=== PATIENT | male | born 1975 | race Caucasian/White ===

== ENCOUNTER 2016-08-17 13:18 | Emergency (ER) | payer SELFPAY ==
--- NOTE | 2016-08-17 14:55 | ERRECORD ---
[facility] EMERGENCY RECORD PAST MEDICAL HISTORY (13:52 BELE) MEDICAL HISTORY: Past medical history is not significant, Notes: HAS HAD DENTAL PROBLEMS BEFORE. NOW, RECURRENT LEFT SIDED DENTAL PAIN. REPORTS CANNOT AFFORD DENTIST AT THIS TIME BUT WANTS ANTIBIOTICS TO AVOID ABCESS. KNOWN ALLERGIES NO KNOWN DRUG ALLERGY CURRENT MEDICATIONS (13:51 BELE) None VITAL SIGNS (13:46 BELE) VITAL SIGNS: BP: 124/74 (Sitting), Pulse: 78 (Regular), Resp: 20 (Non-Labored), Temp: 98.9 (Oral), Pain: 5 (Intermittent), O2 sat: 99 on Room Air, Time: 08/17/2016 13:46. DOCTOR NOTES (18:30 MPUR) TEXT: LWBS. PROBLEM LIST No recorded problems DIAGNOSIS (14:41 JPAR) FINAL: PRIMARY: Dental Pain. PRESCRIPTION No recorded prescriptions DISPOSITION (14:41 JPAR) PATIENT: Disposition Type: Eloped, Disposition: Against Medical Advice, Patient left the department. Mota: GARY=TERRA Wilson, Milly DORANTES=TERRA Yousif, Pollo MPUR=MD Mario, Theron &a-1R&a+25V*p+0X*[id number]*c202B*c15G*c2P*p-0X&a-25V&a+1R Name: Billy Lindsey Jen : 1975 M41 MedRec: [id number] AcctNum: [id number] Prepared: Adi Aug 17, 2016 18:33 by Interface Page 1 of 1 pMD MTDD
--- NOTE | 2016-08-17 15:02 | PICIS ---
[facility] EMERGENCY RECORD TRIAGE (TueAug 17, 2016 13:51 BELE) PATIENT: NAME: Billy Lindsey, AGE: 41, GENDER: male, : Tue1975, TIME OF GREET: TueAug 17, 2016 13:18, PREFERRED LANGUAGE: Polish, ETHNICITY: Not or , ECODE BILLING MAP: [facility], SSN: [id number], Zip Code: [address], HEIGHT/LENGTH: 193.04cm, BMI: 24.95, PHONE: , , , PERSON ID: [id number], PCP: NONE. (TueAug 17, 2016 13:51 BELE) KG WEIGHT: 93 (est.). (14:37 JPAR) COMPLAINT: DENTAL PAIN. (TueAug 17, 2016 13:51 BELE) ADMISSION: URGENCY: 4 Non Urgent, ADMISSION SOURCE: Home, TRANSPORT: CAR, BED: TRIAGE. (TueAug 17, 2016 13:51 BELE) ASSESSMENT: Assessment: ALERT, ORIENTED MALE REPORTS LEFT SIDE DENTAL PAIN SINCE YESTERDAY., Symptoms began 08/16/2016 14:05. (14:08 BELE) PAIN: Patient complains of pain described as, throbbing, on a scale 0-10 patient rates pain as 5, Location LEFT JAW RADIATES TO LEFT SIDE OF NECK, Pain is intermittent, Notes: REPORTS HAS HAD ABCESS BEFORE AND DOES NOT WANT THIS TO PROGRESS TO THAT. STATES HAS PROGRESSIVELY WORSENED. (14:08 BELE) IMMUNIZATIONS: Flu vaccine not up to date, Tetanus immunization up to date, Pneumococcal vaccine not up to date. (14:08 BELE) SIRS SCORING: Heart Rate 55-109 (0), Temp range 96.8-101.1 (0), respiratory rate 12-24 (0), Latest WBC 3-14.9 (0), Mental Status altered: no (0), Total SIRS Score 0, Infection or Suspected Infection: No. (14:08 BELE) TREATMENTS IN PROGRESS: Treatments given Prehospital: MOTRIN 600 MG AT 1100 A.M. (14:08 BELE) PROVIDERS: TRIAGE NURSE: Milly Wilson RN. (TueAug 17, 2016 13:51 BELE) VITAL SIGNS: BP 124/74, (Sitting), Pulse 78, (Regular), Resp 20, (Non-Labored), Temp 98.9, (Oral), Pain 5, (Intermittent), O2 Sat 99, on Room Air, Time 08/17/2016 13:46. (13:46 BELE) KNOWN ALLERGIES NO KNOWN DRUG ALLERGY CURRENT MEDICATIONS (13:51 BELE) None VITAL SIGNS (13:46 BELE) VITAL SIGNS: BP: 124/74 (Sitting), Pulse: 78 (Regular), Resp: 20 (Non-Labored), Temp: 98.9 (Oral), Pain: 5 (Intermittent), O2 sat: 99 on Room Air, Time: 08/17/2016 13:46. NURSING PROCEDURE: NURSE NOTES (14:20 BEL) NURSES NOTES: Notes: PATIENT STATED HE DID NOT WANT TO WAIT TO BE SEEN - WANTED TO LEAVE. I EXPLAINED WE HAD A FULL ER AND THAT &a-1R&a+25V*p+0X*r2664L*c202B*c15G*c2P*p-0X&a-25V&a+1R Name: Billy Lindsey : 1975 M41 MedRec: [id number] AcctNum: [id number] Prepared: TueAug 17, 2016 18:39 by Interface Page 1 of 2 pMD [facility] EMERGENCY RECORD THE PHYSICIAN AND NURSES HAD TO PROVIDE CARE TO MOST URGENT FIRST. EXPLAINED HE WOULD BE SEEN BY PHYSICIAN SOON HE COULD, THAT HE WAS DEALING WITH URGENT MATTER CURRENTLY. I INFORMED DR. MARTIN OF PATIENT'S WISH TO LEAVE . HE WAS NOT FREE TO ATTEND PATIENT IMMEDIATELY AND INDICATED IF THE PATIENT WANTED TO LEAVE AMA HE WOULD NEED TO SIGN OUT. I PROVIDED AMA FORM AND EXPLAINED THAT IT INDICATED HE WAS LEAVING OF HIS OWN VOLITION, AND NOT WITH THE ADVICE OF THE PHYSICIAN. HE SIGNED AND LEFT PER AMBULATORY IN STABLE CONDITION. PAST MEDICAL HISTORY (13:52 BELE) MEDICAL HISTORY: Past medical history is not significant, Notes: HAS HAD DENTAL PROBLEMS BEFORE. NOW, RECURRENT LEFT SIDED DENTAL PAIN. REPORTS CANNOT AFFORD DENTIST AT THIS TIME BUT WANTS ANTIBIOTICS TO AVOID ABCESS. EVENTS TRANSFER: Triage to Emergency Triage. (TueAug 17, 2016 13:51 BELE) Removed from Emergency Triage. (14:41 JPAR) DOCTOR NOTES (18:30 MPUR) TEXT: LWBS. PROBLEM LIST No recorded problems DIAGNOSIS (14:41 JPAR) FINAL: PRIMARY: Dental Pain. DISPOSITION (14:41 JPAR) PATIENT: Disposition Type: Eloped, Disposition: Against Medical Advice, Patient left the department. PRESCRIPTION No recorded prescriptions IMAGING (18:00 JPAR) *SUPPLY CHARGE SHEET: Image captured from scanner. AMA/LWBS: Image captured from scanner. ADMIN (18:30 MPUR) DIGITAL SIGNATURE: MD Martin Marcus. Mota: GARY=TERRA Wilson, Milly DORANTES=TERRA Yousif, Pollo MPUR=MD Mario, Theron &a-1R&a+25V*p+0X*n2646O*c202B*c15G*c2P*p-0X&a-25V&a+1R Name: Billy Lindsey : 1975 M41 MedRec: [id number] AcctNum: [id number] Prepared: Adi Aug 17, 2016 18:39 by Interface Page 2 of 2 pMD MTDD
== END 2016-08-17 14:20 | disposition left against medical advice (07) ==
LOC: NAV ERS 13:18
DX: Z53.21 Procedure and treatment not carried out due to patient leaving prior to being seen by health care provider (principal)

== ENCOUNTER 2016-08-17 16:44 | Emergency (ER) | payer SELFPAY ==
--- NOTE | 2016-08-17 17:58 | ERRECORD ---
[facility] EMERGENCY RECORD HPI TOOTHACHE (17:45 MPUR) CHIEF COMPLAINT: Patient presents for evaluation of toothache. HISTORIAN: History provided by patient. LOCATION: Symptoms are localized, most severe to left lower second molar. QUALITY: Described as similar to previous episodes. SEVERITY: Maximum severity of symptoms moderate, Currently symptoms are moderate. TIME COURSE: Gradual onset of symptoms, There has been no change in the patient's symptoms over time. ASSOCIATED WITH: No associated symptoms. EXACERBATED BY: Patient's condition exacerbated by chewing, Patient's condition exacerbated by cold fluids, Patient's condition exacerbated by hot fluids. RELIEVED BY: Patient's condition relieved by nothing. ROS (17:47 MPUR) CONSTITUTIONAL: Historian denies fever. EYES: Historian denies eye pain. ENT: Historian denies rhinorrhea. See also HPI. CARDIOVASCULAR: Historian denies chest pain. RESPIRATORY: Historian denies cough. GI: Historian denies diarrhea, Historian denies vomiting. GENITOURINARY MALE: Historian denies dysuria. MUSCULOSKELETAL: Historian denies arthralgias. SKIN: Historian denies rash. NEUROLOGIC: Historian denies seizures. ENDOCRINE: Historian denies skin changes. HEMO/LYMPHATIC: Historian denies easy bruising. PAST MEDICAL HISTORY (16:55 EPIE) MEDICAL HISTORY: Past medical history is not significant, Notes: HAS HAD DENTAL PROBLEMS BEFORE. NOW, RECURRENT LEFT SIDED DENTAL PAIN. REPORTS CANNOT AFFORD DENTIST AT THIS TIME BUT WANTS ANTIBIOTICS TO AVOID ABCESS. MALE SURGICAL HISTORY: hydrocele. PSYCHIATRIC HISTORY: No previous psychiatric history. SOCIAL HISTORY: Patient denies alcohol use, Patient denies drug use, Patient currently uses tobacco, smokes cigarettes, Patient smokes 1 pack per day. KNOWN ALLERGIES NO KNOWN DRUG ALLERGY CURRENT MEDICATIONS (16:54 EPIE) None VITAL SIGNS (16:53 EPIE) VITAL SIGNS: BP: 126/60, Pulse: 87, Resp: 18 (Non-Labored), Temp: &a-1R&a+25V*p+0X*e9791F*c202B*c15G*c2P*p-0X&a-25V&a+1R Name: Billy Lindsey : 1975 M41 MedRec: [id number] AcctNum: [id number] Prepared: Tue Aug 17, 2016 18:40 by Interface Page 1 of 3 pMD [facility] EMERGENCY RECORD 98.9 (Oral), O2 sat: 95 on Room Air, Time: 08/17/2016 16:53. PHYSICAL EXAM (17:47 MPUR) CONSTITUTIONAL: Vital signs reviewed, Patient appears non toxic. HEAD: Head exam included findings of head atraumatic, normocephalic. EYES: Eye exam included findings of eyelids normal to inspection, Conjunctiva normal, Sclera normal. ENT: Nose exam normal, no nasal deformity, mucous membranes moist. Almost every molar still present has 50 to 75% erosion of the tooth, leaving the roots. The tooth in question has a deep pocket into the roots probably exposing the nerve. Gums surrounding are swollen. NECK: Neck exam included findings of normal range of motion, no ecchymosis. RESPIRATORY CHEST: Respiratory exam included findings of no respiratory distress, NL Respiratory rate and no increased work of breathing. LOWER EXTREMITY: Lower extremity exam included findings of inspection normal, no cyanosis. NEURO: Speech normal, alert. SKIN: dry, and normal in color, no rash. PSYCHIATRIC: Normal affect, Recent memory normal. DOCTOR NOTES TEXT: I have reviewed and agree with nurse's past medical, family, and social history as documented on chart. Pt's vital signs have been reviewed. (17:47 MPUR) Pt here earlier but LWBS due to having to do something. Returned for this visit. Was offered an injection for pain but declined, saying he doesn't like needles. (18:30 MPUR) PROBLEM LIST No recorded problems DIAGNOSIS (17:27 MPUR) FINAL: PRIMARY: tooth ache, ADDITIONAL: tooth decay. PRESCRIPTION (17:28 MPUR) clindamycin HCl: CAPSULE (HARD, SOFT, ETC.) : 150 mg : ORAL : Quantity: 2 Unit: tab(s) Route: ORAL Schedule: 4 times a day Dispense: 40 May substitute. Refills: No Refills . NOTES: No Refills. Ultram: TABLET : 50 mg : ORAL : Quantity: 1 Unit: tab(s) Route: ORAL Schedule: every 8 hours PRN Dispense: 10 May substitute. Refills: No Refills . NOTES: pain. Take with food. &a-1R&a+25V*p+0X*i3558W*c202B*c15G*c2P*p-0X&a-25V&a+1R Name: Billy Lindsey : 1975 1 MedRec: [id number] AcctNum: [id number] Prepared: TueAug 17, 2016 18:40 by Interface Page 2 of 3 pMD [facility] EMERGENCY RECORD No Refills. DISPOSITION PATIENT: Disposition Type: Discharge, Disposition: *Discharge Home. (17:27 RUBIN) Patient left the department. (17:51 JAYNA) Mota: PEGGY=TERRA Charles, Emi DORANTES=TERRA Yousif, Pollo CONKLIN=MD Mario, Theron &a-1R&a+25V*p+0X*w4860L*c202B*c15G*c2P*p-0X&a-25V&a+1R Name: Billy Lindsey : 1975 M41 MedRec: [id number] AcctNum: [id number] Prepared: TueAug 17, 2016 18:40 by Interface Page 3 of 3 pMD MTDD
--- NOTE | 2016-08-17 18:05 | PICIS ---
[facility] EMERGENCY RECORD TRIAGE (16:54 EPIE) TRIAGE NOTES: Pt reports left lower dental pain starting yesterday. (16:54 EPIE) PATIENT: NAME: Billy Lindsey, AGE: 41, GENDER: male, : Tue1975, TIME OF GREET: TueAug 17, 2016 16:46, PREFERRED LANGUAGE: Occitan, ETHNICITY: Not or , ECODE BILLING MAP: [facility], SSN: [id number], Zip Code: [address], KG WEIGHT: 92.99, PHONE: , , , PERSON ID: [id number], PCP: none. (16:54 EPIE) COMPLAINT: TOOTHACHE,LT BOTTOM RADIATES LT SIDE,SINCE 08/16/16. (16:54 EPIE) ADMISSION: URGENCY: 4 Non Urgent, ADMISSION SOURCE: Home, TRANSPORT: CAR, BED: TRIAGE. (16:54 EPIE) TRIAGE SCREENING: Patient denies suicidal ideation, Patient denies presence of domestic violence. (16:55 EPIE) TREATMENTS IN PROGRESS: Treatments given Prehospital: none. (16:55 EPIE) PROVIDERS: TRIAGE NURSE: Emi Charles RN. (16:54 EPIE) VITAL SIGNS: BP 126/60, Pulse 87, Resp 18, (Non-Labored), Temp 98.9, (Oral), O2 Sat 95, on Room Air, Time 08/17/2016 16:53. (16:53 EPIE) PREVIOUS VISIT ALLERGIES: NO KNOWN DRUG ALLERGY. (16:54 EPIE) NO KNOWN DRUG ALLERGY. (16:55 EPIE) KNOWN ALLERGIES NO KNOWN DRUG ALLERGY CURRENT MEDICATIONS (16:54 EPIE) None VITAL SIGNS (16:53 EPIE) VITAL SIGNS: BP: 126/60, Pulse: 87, Resp: 18 (Non-Labored), Temp: 98.9 (Oral), O2 sat: 95 on Room Air, Time: 08/17/2016 16:53. NURSING ASSESSMENT: DENTAL (16:56 EPIE) CONSTITUTIONAL: Patient arrives ambulatory, Gait steady, History obtained from patient, Patient appears comfortable, Patient cooperative, Patient alert, Oriented to person, place and time, Skin warm, Skin dry, Skin normal in color, Mucous membranes pink, Mucous membranes moist, Patient is well-groomed, Pt reports left lower dental pain starting yesterday. PAIN: aching pain, to left lower back tooth (teeth), Onset of pain 08/16/2016, on a scale 0-10 patient rates pain as 7, Pain exacerbated by nothing, Nothing has been tried to alleviate the pain. DENTAL: Dental assessment findings include mouth with, poor dental hygiene, Teeth abnormal:, missing secondary tooth (teeth), pt has black secondary teeth that are decaying. &a-1R&a+25V*p+0X*u5071I*c202B*c15G*c2P*p-0X&a-25V&a+1R Name: Billy Lindsey : 1975 M41 MedRec: [id number] AcctNum: [id number] Prepared: Adi Aug 17, 2016 18:46 by Interface Page 1 of 4 pMD [facility] EMERGENCY RECORD NURSING PROCEDURE: DISCHARGE NOTE (17:34 EPIE) DISCHARGE: Patient discharged to home, ambulating without assistance, family driving, accompanied by //partner, Summary of Care printed/ provided, Discharge instructions given to patient, Simple or moderate discharge teaching performed, Prescriptions given and instructions on side effects given, Name of prescription(s) given: ULTRAM, CLINDAMYCIN, Above person(s) verbalized understanding of discharge instructions and follow-up care. BELONGINGS: Belongings and valuables with patient upon arrival to the Emergency Department include:, Belongings and valuables with patient at time of discharge include:, Belongings remain with patient, Valuables remain with patient. HPI TOOTHACHE (17:45 MPUR) CHIEF COMPLAINT: Patient presents for evaluation of toothache. HISTORIAN: History provided by patient. LOCATION: Symptoms are localized, most severe to left lower second molar. QUALITY: Described as similar to previous episodes. SEVERITY: Maximum severity of symptoms moderate, Currently symptoms are moderate. TIME COURSE: Gradual onset of symptoms, There has been no change in the patient's symptoms over time. ASSOCIATED WITH: No associated symptoms. EXACERBATED BY: Patient's condition exacerbated by chewing, Patient's condition exacerbated by cold fluids, Patient's condition exacerbated by hot fluids. RELIEVED BY: Patient's condition relieved by nothing. ROS (17:47 MPUR) CONSTITUTIONAL: Historian denies fever. EYES: Historian denies eye pain. ENT: Historian denies rhinorrhea. See also HPI. CARDIOVASCULAR: Historian denies chest pain. RESPIRATORY: Historian denies cough. GI: Historian denies diarrhea, Historian denies vomiting. GENITOURINARY MALE: Historian denies dysuria. MUSCULOSKELETAL: Historian denies arthralgias. SKIN: Historian denies rash. NEUROLOGIC: Historian denies seizures. ENDOCRINE: Historian denies skin changes. HEMO/LYMPHATIC: Historian denies easy bruising. PAST MEDICAL HISTORY (16:55 EPIE) MEDICAL HISTORY: Past medical history is not significant, Notes: HAS HAD DENTAL PROBLEMS BEFORE. NOW, RECURRENT LEFT SIDED DENTAL PAIN. REPORTS CANNOT AFFORD DENTIST AT THIS TIME BUT WANTS &a-1R&a+25V*p+0X*e1317U*c202B*c15G*c2P*p-0X&a-25V&a+1R Name: Billy Lindsey : 1975 0 MedRec: [id number] AcctNum: [id number] Prepared: Adi Aug 17, 2016 18:46 by Interface Page 2 of 4 pMD [facility] EMERGENCY RECORD ANTIBIOTICS TO AVOID ABCESS. MALE SURGICAL HISTORY: hydrocele. PSYCHIATRIC HISTORY: No previous psychiatric history. SOCIAL HISTORY: Patient denies alcohol use, Patient denies drug use, Patient currently uses tobacco, smokes cigarettes, Patient smokes 1 pack per day. PHYSICAL EXAM (17:47 MPUR) CONSTITUTIONAL: Vital signs reviewed, Patient appears non toxic. HEAD: Head exam included findings of head atraumatic, normocephalic. EYES: Eye exam included findings of eyelids normal to inspection, Conjunctiva normal, Sclera normal. ENT: Nose exam normal, no nasal deformity, mucous membranes moist. Almost every molar still present has 50 to 75% erosion of the tooth, leaving the roots. The tooth in question has a deep pocket into the roots probably exposing the nerve. Gums surrounding are swollen. NECK: Neck exam included findings of normal range of motion, no ecchymosis. RESPIRATORY CHEST: Respiratory exam included findings of no respiratory distress, NL Respiratory rate and no increased work of breathing. LOWER EXTREMITY: Lower extremity exam included findings of inspection normal, no cyanosis. NEURO: Speech normal, alert. SKIN: dry, and normal in color, no rash. PSYCHIATRIC: Normal affect, Recent memory normal. EVENTS TRANSFER: Triage to Emergency Triage. (TueAug 17, 2016 16:54 EPIE) Emergency Triage to Emergency Room -04. (16:54 EPIE) Removed from Emergency Emergency Room -04. (17:51 JPAR) DOCTOR NOTES TEXT: I have reviewed and agree with nurse's past medical, family, and social history as documented on chart. Pt's vital signs have been reviewed. (17:47 MPUR) Pt here earlier but LWBS due to having to do something. Returned for this visit. Was offered an injection for pain but declined, saying he doesn't like needles. (18:30 MPUR) PROBLEM LIST No recorded problems DIAGNOSIS (17:27 MPUR) FINAL: PRIMARY: tooth ache, ADDITIONAL: tooth decay. &a-1R&a+25V*p+0X*c5324D*c202B*c15G*c2P*p-0X&a-25V&a+1R Name: Billy Lindsey : 1975 M41 MedRec: [id number] AcctNum: [id number] Prepared: TueAug 17, 2016 18:46 by Interface Page 3 of 4 pMD [facility] EMERGENCY RECORD DISPOSITION PATIENT: Disposition Type: Discharge, Disposition: *Discharge Home. (17:27 MPUR) Patient left the department. (17:51 JPAR) INSTRUCTION (17:30 MPUR) DISCHARGE: TOOTH PAIN, DENTAL CAVITY. FOLLOWUP: [facility], ([facility]), Clinic, [facility] , , [facility], Dental, Dentistry, [facility] [address], , [facility], [place], [place]), [facility], [address] [place] [address] , . SPECIAL: take the antibiotics. Follow up with a dentist as soon as possible. Tylenol or Advil for Pain. PRESCRIPTION (17:28 MPUR) clindamycin HCl: CAPSULE (HARD, SOFT, ETC.) : 150 mg : ORAL : Quantity: 2 Unit: tab(s) Route: ORAL Schedule: 4 times a day Dispense: 40 May substitute. Refills: No Refills . NOTES: No Refills. Ultram: TABLET : 50 mg : ORAL : Quantity: 1 Unit: tab(s) Route: ORAL Schedule: every 8 hours PRN Dispense: 10 May substitute. Refills: No Refills . NOTES: pain. Take with food. No Refills. IMAGING (18:26 EPIE) *DISCHARGE INSTRUCTIONS RECEIPT: Image captured from scanner. Page 2 added. Image captured from scanner. *SUPPLY CHARGE SHEET: Image captured from scanner. ADMIN (18:32 MPUR) DIGITAL SIGNATURE: MD Martin Marcus. Mota: EPIE=TERRA Charles, Emi CHACONAR=TERRA Yousif Jason MPUR=MD Martin Marcus &a-1R&a+25V*p+0X*n3091T*c202B*c15G*c2P*p-0X&a-25V&a+1R Name: Billy Lindsey : 1975 M41 MedRec: [id number] AcctNum: [id number] Prepared: Adi Aug 17, 2016 18:46 by Interface Page 4 of 4 pMD MTDD
== END 2016-08-17 17:34 | disposition home or self-care (01) ==
LOC: NAV ERS 16:44
DX: K02.9 Dental caries, unspecified (principal); F17.210 Nicotine dependence, cigarettes, uncomplicated
CPT/HCPCS: 99282

== ENCOUNTER 2017-02-24 22:22 | Emergency (ER) | payer SELFPAY ==
[2017-02-24] MEDS ORDERED: Fluorescein Opthalmic Strip ONE (22:50)
[2017-02-24] MEDS ORDERED: Tetracaine HCl 0.5% Ophth Soln 2 ML Bottle ONE (22:50)
[2017-02-24] MEDS ORDERED: Tobramycin Sulfate 0.3% Ophth Susp 5 ml Bottle ONE (23:13)
[2017-02-24] MEDS ORDERED: HYDROcodone/Acetaminophen 10/325 mg Tablet ONE (23:13)
== END 2017-02-24 23:27 | disposition home or self-care (01) ==
LOC: NAV ERS 22:22
DX: S05.02XA Injury of conjunctiva and corneal abrasion without foreign body, left eye, initial encounter (principal); F17.210 Nicotine dependence, cigarettes, uncomplicated; X58.XXXA Exposure to other specified factors, initial encounter
CPT/HCPCS: 99283

== ENCOUNTER 2017-08-06 16:12 | Emergency (ER) | payer SELFPAY ==
[2017-08-06] MEDS ORDERED: Acetaminophen 500 MG TAB ONE (16:29)
[2017-08-06] MEDS ORDERED: Ibuprofen 800 MG TAB ONE (16:31)
== END 2017-08-06 16:39 | disposition home or self-care (01) ==
LOC: NAV ERS 16:12
DX: J11.1 Influenza due to unidentified influenza virus with other respiratory manifestations (principal); F17.210 Nicotine dependence, cigarettes, uncomplicated
CPT/HCPCS: 99283